=== PATIENT | female | born 1970 | race Caucasian/White ===

== ENCOUNTER 2024-06-11 13:36 | Emergency (ER) | payer BC, SELFPAY ==
[2024-06-11 13:40] VITALS: BP 172/117
--- NOTE | 2024-06-11 14:18 | ED.GENMED ---
Addendum entered and electronically signed by Chasity Harrington PA-C 06/13/24 08:02:
e coli prelim urine culture
on cefuroxime
await sensitivities
Original Note:
History of Present Illness
General
Chief Complaint: Urinary Symptoms
Source: patient
Time Seen by Provider: 06/11/24 13:50
History of Present Illness
History of Present Illness:
53 year old female with PMH of breast cancer s/p left mastectomy, HTN, HLD presenting to the ER after developing mild right flank pain yesterday, today started experiencing urinary frequency/urgency/dysuria and hematuria with moderate clots forming.
She contacted her PCP but was unable to be seen today so came to the ER isntead. Denies history of similar. She denies any fevers, chills, rigors, nausea/vomiting, bowel changes, or any other concerns. Denies anticoagulants. Did not take any
medications [employer]
Past History
Past History
ED Past Medical History: Cancer, HTN and Hypercholesterolemia
ED Past Surgical History: Other (left mastectomy)
Social History
Tobacco: Non-smoker
Alcohol: None
Drug: None
Personal: Single
Living: with family
Employment: Employed
Review of Systems
Review of Systems
All Other Systems: ROS reviewed and negative except as documented in HPI and ROS
Phy Exam
Physical Exam
Physical Exam:
GENERAL: Alert , in no apparent distress
EYE: clear conjunctiva b/l
HEAD: NCAT
ENT: o/p clr, mmm.
CARDIAC: Regular rate and rhythm .
LUNGS: Clear breath sounds bilaterally, no acute respiratory distress, no wheezes/rales/rhonchi
ABDOMEN: Soft, without focal tenderness, no r/g, no cvat
NEUROLOGICAL: Alert and oriented
SKIN: Warm and dry, skin intact.
MUSCULOSKELETAL: well perfused.
PSYCH: Normal and appropriate interaction.
Scores
Heart Failure Risk
Heart Failure Risk Score: Not Applicable
Heart Score for Chest Pain Patients
STEMI patient?: Not applicable
Withdrawal Assessment of Alcohol
Withdrawal Assessment Completed?: Not applicable
Course
Orders/Labs/Results
Orders:
Orders
06/11/24 14:02
CT Abd/pel Without Iv Or Oral Urgent
Comment:
Reason For Exam: right flank pain, hematuria
Phenazopyridine HCl [Pyridium] 200 mg PO NOW STA
06/11/24 14:06
Basic Metabolic Panel Urgent
Complete Blood Count/With Diff Urgent
Urinalysis Reflex To Culture Urgent
Date Specimen was Collected: 06/11/24
Time Specimen was Collected: 13:58
Urine Microscopic Reflex Cult Urgent
Urine Culture Urgent
MAKENNA Source: U
Specimen Description:
Date Specimen was Collected: 06/11/24
Time Specimen was Collected: 13:58
Abnormal Lab Results
06/11/24
14:06
Absolute Neuts (auto) 7.3 H 10^3/uL
(1.4-6.5)
Absolute Lymphs (auto) 0.8 L 10^3/uL
(1.2-3.4)
Neutrophils % 83.0 H %
(42.2-75.2)
Lymphocytes % 9.3 L %
(20.5-51.1)
BUN 18 H mg/dl
(7-17)
Glucose 139 H mg/dl
(70-99)
Urine Ketones 1+ A
(Negative)
Ur Occult Blood Reflex 4+ A
(Negative)
Leukocyte Esterase Rfl 2+ A
(Negative)
Urine RBC >100 A /HPF
(0-2)
Urine Albumin (Reflex) 3+ A
(Neg - Trace)
06/11/24 14:06
06/11/24 14:06
Vital Signs
Initial and Last Documented VS:
Initial Vital Signs
Temp Pulse Resp BP Pulse Ox
98 F 109 20 172/117 98
06/11/24 13:40 06/11/24 13:40 06/11/24 13:40 06/11/24 13:40 06/11/24 13:40
Last Documented Vital Signs
Temp Pulse Resp BP Pulse Ox
98 F 109 20 122/78 96
06/11/24 13:40 06/11/24 13:40 06/11/24 13:40 06/11/24 15:19 06/11/24 15:30
MDM/Problems Addressed
Differential Diagnosis Includes:
cystitis, pyelonephritis, renal/ureteral colic
MDM/Problems Addressed:
53 year old female with urinary frequency/urgency, dysuria and hematuria with clots x 1 day. Well appearing and afebrile here. Suspect cystitis as most likely. Will check labs, urine, CT scan to evaluate for possible stones. Pyridium ordered based
off suspected diagnosis. Anticipate discharge home
*Radiology
Radiology exam reviewed: radiology read reviewed
*Pulse Oximetry
Patient hypoxic: no
*Critical Care Note
Total Time (30-74mins, 75-104mins- exclusive of procedures): Not Applicable
Patient Management
Escalation/DeEscalation of care consider admission/obs:
Patients CT without acute abnormalities. Prescription for cefuroxime and pyridium sent to pharmacy. Aware of return precautions. Will follow up with PCP.
ED Attending Note
-
Portions of this chart may have been created with voice recognition software.� Occasional wrong word or��sound alike� substitutions may have occurred due to the inherent limitations of voice recognition software.
Discharge Plan
Departure
Patient Disposition: Home (Routine Discharge)
Date of Disposition: 06/11/24
Time of Disposition: 15:49
Patient with high blood pressure during this ER visit?: Yes
Discharge Problem:
Acute hemorrhagic cystitis
Instructions: Urinary Tract Infection, Adult (DC)
Prescriptions:
New
cefuroxime axetil 500 mg tablet
500 mg PO BID 10 Days Qty: 20 0RF
phenazopyridine [Pyridium] 200 mg tablet
200 mg PO TID PRN (Reason: Pain) Qty: 6 0RF
No Action
atorvastatin 40 mg Tablet
40 mg PO SUTUTHSA
acetaminophen 325 mg Tablet
975 mg PO Q6HPRN PRN (Reason: BREAKTHROUGH PAIN)
atorvastatin 20 mg Tablet
20 mg PO MOWEFR
cefadroxil 500 mg Capsule
500 mg PO BID
Patient Comments:
filled on 08/12/23 #28
ibuprofen 600 mg Tablet
600 mg PO Q6H
losartan-hydrochlorothiazide 100-12.5 mg Tablet
1 tab PO QPM
meclizine 12.5 mg tablet
See Rx Instructions .ROUTE .COMPLEX PRN (Reason: vertigo) Qty: 30 0RF
Rx Instructions:
12.5 to 25 mg every 6 to 12 hours as needed
ondansetron 4 mg tablet,disintegrating
4 mg PO Q8H PRN (Reason: nausea and vomiting) Qty: 14 0RF
Referrals:
Michelle Sinha CRNP [Family Provider] -
Interventions
Interventions:
*Risk Screen - Suicide Last Done: 06/11/24 13:42
*General Assessment Last Done: 06/11/24 13:42
*Neglect/Abuse Screening Last Done: 06/11/24 13:42
ED- Fall Risk Assessment Last Done: 06/11/24 13:49
ED-Female Genitourinary Assessment Last Done: 06/11/24 13:49
Discharge Date and Time
Print Language: SWEDISH
[2024-06-11] MEDS: Pyridium 200 MG PO (14:19)
[2024-06-11 14:58] LABS: % Basophils 0.5 % (0-2); % Eosinophils 1.2 % (0-6); % Immature Granulocytes 0.2 % (0-0.5); % Lymphocytes 9.3 % (20.5-51.1); % Monocytes 5.8 % (1.7-9.3); Absolute Eosinophils 0.1 10^3/uL (0-0.7); Absolute Lymphocytes 0.8 10^3/uL (1.2-3.4); Absolute Monocytes 0.5 10^3/uL (0.1-0.6); Absolute Neutrophils 7.3 10^3/uL (1.4-6.5); Hematocrit 38.1 % (37.0-47.0); Hemoglobin 13.4 g/dL (12.0-16.0); Mean Corp Hgb Conc. 35.2 g/dL (33.0-37.0); Mean Corpuscular Hgb 30.4 pg (27.0-31.0); Mean Corpuscular Volume 86.4 fL (81.0-99.0); Mean Platelet Volume 10.2 fL (7.4-10.4); Nucleated Red Blood Cells % 0 %; Platelet Count 203 10^3/uL (130-400); Red Blood Cell Count 4.41 10^6/uL (4.20-5.40); Red Cell Dist. Width 13.5 % (11.5-14.5); White Blood Cell Count 8.8 10^3/uL (4.8-10.8)
[2024-06-11 15:02] LABS: Blood Urea Nitrogen 18 mg/dl (7-17); Calcium 9.5 mg/dl (8.4-10.2); Carbon Dioxide 28 mmol/L (22-30); Chloride 105 mmol/L (98-107); Glucose 139 mg/dl (70-99); Sodium 140 mmol/L (135-145); eGFR > 60.00
[2024-06-11 15:03] LABS: Urine Albumin 3+ (Neg - Trace); Urine Bilirubin Negative (Negative); Urine Character Bloody (Clear); Urine Color Red; Urine Glucose Negative (Negative); Urine Ketone 1+ (Negative); Urine Leukocyte 2+ (Negative); Urine Nitrite Negative (Negative); Urine Occult Blood 4+ (Negative); Urine Specific Gravity 1.015 (<1.030); Urine Urobilinogen Negative (Neg - 1+); Urine pH 6.5 (5.0-9.0)
[2024-06-11 15:19] VITALS: BP 122/78
[2024-06-11 15:20] LABS: Urine Red Blood Cell >100 /HPF (0-2)
== END 2024-06-11 16:33 | disposition home or self-care (01) ==
LOC: EMR 13:36
PROVIDERS: Physician Assistant Medical; EMERGENCY PHYSICIAN Emergency Medicine; FAMILY PHYSICIAN Nurse Practitioner Adult Health
DX: N30.01 Acute cystitis with hematuria (principal); I10 Essential (primary) hypertension; E78.00 Pure hypercholesterolemia, unspecified; Z85.3 Personal history of malignant neoplasm of breast; Z90.12 Acquired absence of left breast and nipple
CPT/HCPCS: 99284; 74176; 80048; 81003; 81015; 85025; 87086; 87088; 87186